=== PATIENT | male | born 1960 | race Caucasian/White ===

== ENCOUNTER 2018-09-11 07:44 | Day surgery (SDC) | payer OTHER, SELFPAY ==
[2018-09-11] MEDS: PROPARACAINE 0.5% OPHTH SOL 2 DROPS EYE-OP (08:16)
[2018-09-11 08:17] VITALS: BMI 23.3
[2018-09-11] MEDS: CATARACT EYE COMPOUND (10 DROPS/SYRINGE) 3 DROPS EYE-OP (08:22)
[2018-09-11 08:23] VITALS: BP 161/85; PULSE 88; RESP 16; TEMP 36.5; O2SAT 98
--- NOTE | 2018-09-11 09:12 | PM.PREOP ---
Pre-operative Note Interval Note History & Physical reviewed/Exam performed by Physician: Yes Changes to H&P: No
[2018-09-11] MEDS: BALANCED SALT IRRIG SOLN NO.2 15 ML 5 ML IRR (09:49)
[2018-09-11] MEDS: PHENYLEPHRINE/LIDOCAINE VIAL (OR) 0.2 ML EYE-OP (09:49)
[2018-09-11] MEDS: MOXIFLOXACIN OPHTH DROPS 3 ML BOTTLE 2 DROPS INJ (09:50)
[2018-09-11] MEDS: BALANCED SALT IRRIG SOLN NO.2 500 ML, EPINEPHrine 1 MG IRR (09:51)
[2018-09-11] MEDS: TETRACAINE 0.5% OPHTH DROPS 4 ML 2 DROPS EYE-OP (09:51)
[2018-09-11] MEDS: LIDOCAINE 2% INJ SDV 2 ML INJ (09:52)
[2018-09-11] MEDS: CHONDROIDTIN/SOD HYALURONATE 1.05 ML SYRINGE INTRAOCULA (09:52)
--- NOTE | 2018-09-11 10:05 | PM.OP.1 ---
Procedure & Clinicians Procedure: cataract extraction with intraocular lens implant, left Same procedure as scheduled: Yes Indications: Combined forms age related cataract, left Surgeon: Kenn Landers Click Yes if Unassisted: Yes Anesthesia Type: MAC +/- Operative Notes Procedure in detail: The patient was brought to the operating suite. The correct patient, surgical site and lens were confirmed. 0.5 % tetracaine drops were placed in the left eye. The patient was prepped and draped in the typical sterile manner. A lid speculum was placed in the eye. 2% lidocaine was placed on the eye. A paracentesis port was created with a side-port blade. 0.1 mL of 1% preservative free lidocaine with phenylephrine was injected into the anterior chamber. Viscoelastic was injected into the anterior chamber. A 2.6mm keratome was used to create a clear corneal temporal incision. Cystotome and Utrata forceps were used to create a continuous curvilinear capsulorrhexis. Balanced salt solution was used to hydrodissect the nucleus. Phacoemulsification was used to remove the lens. The capsular bag was inflated with viscoelastic. A Brooks ZBOO +19.0D lens was inserted into the capsule. Viscoelastic was removed and the wound hydrated. The wound was found to be leak free and the eye was assessed to be at normal physiologic pressure. 0.1mL Vigamox was injected into the anterior chamber. The lid speculum was removed and the patient left the operating room in excellent condition. Complications: none Condition: stable Disposition: same day surgery
[2018-09-11 10:11] VITALS: BP 146/77; PULSE 69; RESP 16; TEMP 36.4; O2SAT 99
== END 2018-09-11 10:24 | disposition home or self-care (01) ==
PROVIDERS: Visit Provider Ophthalmology
PROC: (CPT 66984; principal; 2018-09-11 09:30)
DX: H25.812 Combined forms of age-related cataract, left eye (principal); I10 Essential (primary) hypertension
CPT/HCPCS: 66984; J0171; J2250; J3010

== ENCOUNTER 2018-12-11 07:25 | Day surgery (SDC) | payer OTHER, SELFPAY ==
[2018-12-11] MEDS: PROPARACAINE 0.5% OPHTH SOL 2 DROPS EYE-OP (07:35)
[2018-12-11 07:41] VITALS: BP 142/82; PULSE 86; RESP 16; TEMP 37; O2SAT 97; BMI 23.5
[2018-12-11] MEDS: CATARACT EYE COMPOUND (10 DROPS/SYRINGE) 3 DROPS EYE-OP (07:51)
--- NOTE | 2018-12-11 08:28 | PM.PREOP ---
Pre-operative Note Interval Note History & Physical reviewed/Exam performed by Physician: Yes Changes to H&P: No
[2018-12-11] MEDS: TETRACAINE 0.5% OPHTH DROPS 4 ML 2 DROPS EYE-OP (08:50)
[2018-12-11] MEDS: LIDOCAINE 2% INJ SDV 2 ML INJ (08:51)
[2018-12-11] MEDS: PHENYLEPHRINE/LIDOCAINE VIAL (OR) 0.2 ML EYE-OP (08:51)
[2018-12-11] MEDS: CHONDROIDTIN/SOD HYALURONATE 1.05 ML SYRINGE INTRAOCULA (08:52)
[2018-12-11] MEDS: BALANCED SALT IRRIG SOLN NO.2 500 ML, EPINEPHrine 1 MG IRR (08:52)
[2018-12-11] MEDS: BALANCED SALT IRRIG SOLN NO.2 15 ML 5 ML IRR (08:53)
[2018-12-11] MEDS: MOXIFLOXACIN INJ 5 MG/ML VIAL EYE-OP (08:54)
--- NOTE | 2018-12-11 09:17 | PM.OP.1 ---
Procedure & Clinicians Procedure: Cataract extraction with intraocular lens implant, right Same procedure as scheduled: Yes Indications: Visually significant age related nuclear sclerosis, right Click Yes if Unassisted: Yes Anesthesia Type: MAC +/- Operative Notes Procedure in detail: The patient was brought to the operating suite. The correct patient, surgical site and lens were confirmed. 0.5 % tetracaine drops were placed in the right eye. The patient was prepped and draped in the typical sterile manner. A lid speculum was placed in the eye. 2% lidocaine was placed on the eye. A paracentesis port was created with a side-port blade. 0.1 mL of 1% preservative free lidocaine with phenylephrine was injected into the anterior chamber. Viscoelastic was injected into the anterior chamber. A 2.6mm keratome was used to create a clear corneal temporal incision. Cystotome and Utrata forceps were used to create a continuous curvilinear capsulorrhexis. Balanced salt solution was used to hydrodissect the nucleus. Phacoemulsification was used to remove the lens. The capsular bag was inflated with viscoelastic. A Brooks ZCBOO +19.5D lens was inserted into the capsule. Viscoelastic was removed and the wound hydrated and sealed with Resure glue. The wound was found to be leak free and the eye was assessed to be at normal physiologic pressure. 0.1mL Vigamox was injected into the anterior chamber. The lid speculum was removed and the patient left the operating room in excellent condition. Complications: none Post-operative Condition: stable Disposition: same day surgery
[2018-12-11 09:23] VITALS: BP 136/78; PULSE 75; RESP 15; TEMP 36.9; O2SAT 99
== END 2018-12-11 09:32 | disposition home or self-care (01) ==
LOC: OR 07:27
PROVIDERS: Visit Provider Ophthalmology
PROC: (CPT 66984; principal; 2018-12-11 08:30)
DX: H25.11 Age-related nuclear cataract, right eye (principal); I10 Essential (primary) hypertension
CPT/HCPCS: 66984; J0171; J2250; J3010

== ENCOUNTER → 2020-05-20 08:54 | Outpatient (CLI) | payer OTHER, SELFPAY ==
[2020-05-20] MEDS: COVID-19 VACC #1, MRNA(MOD) 100 MCG/0.5 ML VIAL IM (09:06)
== END ==
PROVIDERS: Visit Provider Internal Medicine
DX: Z23 Encounter for immunization (principal)
CPT/HCPCS: 0011A; 91301

== ENCOUNTER → 2020-06-17 09:53 | Outpatient (CLI) | payer OTHER, SELFPAY ==
[2020-06-17] MEDS: COVID-19 VACC #2, MRNA(MOD) 100 MCG/0.5 ML VIAL IM (10:00)
== END ==
PROVIDERS: Visit Provider Internal Medicine
DX: Z23 Encounter for immunization (principal)
CPT/HCPCS: 0012A; 91301

== ENCOUNTER → 2021-05-05 12:34 | Outpatient (CLI) | payer OTHER, SELFPAY ==
--- NOTE | 2021-05-05 12:36 | DI.RAD.S_ITS ---
PROCEDURE: XR HAND RT MIN 3V INDICATIONS: hand issue TECHNIQUE: 3 views of the hand(s) acquired. COMPARISON: None. FINDINGS: Limited evaluation of the digits secondary to flexion. Bones: No fractures or dislocations. Carpal bones are normally aligned. No suspicious bony lesions. Joint space narrowing and periarticular osteophyte formation at the scaphoid trapezial, 1st carpometacarpal joints, as well as the interphalangeal joints of the digits. Soft tissues: No suspicious soft tissue calcifications. IMPRESSION: Osteoarthritis. No acute fracture. No osseous lesion. If symptoms and/or clinical suspicion for pathology persist, further assessment with repeat, or advanced imaging (e.g., CT, MRI, or bone scan) may be helpful for further assessment. Dictated by: Alvaro Benitez M.D. on 05/05/2021 at 16:31 Approved by: Alvaro Benitez M.D. on 05/05/2021 at 16:32
== END ==
PROVIDERS: Referring Provider Nurse Practitioner Family; Visit Provider Nurse Practitioner Family
DX: M19.041 Primary osteoarthritis, right hand (principal)
CPT/HCPCS: 73130

== ENCOUNTER → 2022-04-20 12:26 | Outpatient (CLI) | payer OTHER, SELFPAY ==
[2022-04-20 13:33] LABS: Add Manual Diff / Slide Review NO; Basophils Absolute Auto 0 /uL (0-100); Basophils Percent Auto 0.3 % (0-2); Eosinophils Absolute Auto 200 /uL (0-450); Eosinophils Percent Auto 2.8 % (2-4); Hematocrit 44.5 % (41-53); Hemoglobin 15.4 g/dL (13.5-17.5); Lymphocytes Absolute Auto 1400 /uL (1100-4500); Lymphocytes Percent Auto 19.7 % (25-40); Mean Corpuscular HGB Conc 34.6 % (30-36); Mean Corpuscular Volume 92.4 fL (80-100); Monocytes Absolute Auto 1100 /uL (0-900); Monocytes Percent Auto 15.9 % (3-14); Neutrophils Absolute Auto 4200 /uL (1500-7000); Neutrophils Percent Auto 61.3 % (50-75); Platelet Count 303 X10^3/uL (150-400); Red Blood Cell Count 4.82 X10^6/uL (4.5-5.9); Red Cell Distribution Width 12.8 % (11.6-14.8); White Blood Cell Count 6.9 X10^3/uL (4.5-11.0)
[2022-04-20 14:08] LABS: Alanine Aminotransferase 19 IU/L (<50); Albumin 4.7 g/dL (3.5-5.0); Albumin Globulin Ratio 1.5 (1.0-2.8); Alkaline Phosphatase 75 U/L (38-126); Aspartate Aminotransferase 26 IU/L (17-59); BUN Creatinine Ratio 14.3 (6-22); Bilirubin Total 0.8 mg/dL (0.2-1.3); Blood Urea Nitrogen 8 mg/dL (9-20); Carbon Dioxide 32 mmol/L (22-32); Chloride 90 mmol/L (98-107); Cholesterol 168 mg/dL (140-199); Estimated Glomerular Filt Rate > 60 mL/min (>60); Globulin 3.1 g/dL (1.7-4.1); Glucose 102 mg/dL (80-110); HDL Cholesterol 94 mg/dL (40-60); HEMOLYSIS < 15 (0-50); LDL Cholesterol Calculated 62 mg/dL (<100); Potassium 4.5 mmol/L (3.4-5.1); Sodium 129 mmol/L (137-145); Total Protein 7.8 g/dL (6.3-8.2); Triglycerides 59 mg/dL (35-150); Uric Acid 5.2 mg/dL (3.5-8.5)
[2022-04-20 14:33] LABS: Prostate Specific Antigen Scrn 1.87 ng/mL (0.1-4.0)
== END ==
PROVIDERS: PCP Family Medicine; Referring Provider Family Medicine; Visit Provider Family Medicine
DX: I10 Essential (primary) hypertension (principal); N52.9 Male erectile dysfunction, unspecified; Z12.5 Encounter for screening for malignant neoplasm of prostate; Z13.220 Encounter for screening for lipoid disorders; Z87.39 Personal history of other diseases of the musculoskeletal system and connective tissue
CPT/HCPCS: 36415; 80053; 80061; 84550; 85025; G0103

== ENCOUNTER → 2023-11-11 09:04 | Outpatient (CLI) | payer OTHER, MEDICARE, SELFPAY ==
[2023-11-11 09:56] LABS: Add Manual Diff / Slide Review NO; Basophils Absolute Auto 0 /uL (0-100); Basophils Percent Auto 0.4 % (0-2); Eosinophils Absolute Auto 200 /uL (0-450); Hematocrit 40.7 % (41-53); Lymphocytes Absolute Auto 1700 /uL (1100-4500); Lymphocytes Percent Auto 21.9 % (25-40); Mean Corpuscular HGB Conc 34.4 % (30-36); Mean Corpuscular Volume 95.7 fL (80-100); Monocytes Absolute Auto 1200 /uL (0-900); Monocytes Percent Auto 15.1 % (3-14); Neutrophils Absolute Auto 4700 /uL (1500-7000); Neutrophils Percent Auto 60.6 % (50-75); Platelet Count 288 X10^3/uL (150-400); Red Blood Cell Count 4.25 X10^6/uL (4.5-5.9); White Blood Cell Count 7.7 X10^3/uL (4.5-11.0)
[2023-11-11 10:28] LABS: Alanine Aminotransferase 14 IU/L (<50); Albumin 4.3 g/dL (3.5-5.0); Albumin Globulin Ratio 1.8 (1.0-2.8); Alkaline Phosphatase 66 U/L (38-126); Aspartate Aminotransferase 24 IU/L (17-59); BUN Creatinine Ratio 15.5 (6-22); Bilirubin Total 0.9 mg/dL (0.2-1.3); Blood Urea Nitrogen 9 mg/dL (9-20); Calcium 9.6 mg/dL (8.4-10.2); Carbon Dioxide 29 mmol/L (22-32); Chloride 91 mmol/L (98-107); Cholesterol 145 mg/dL (140-199); Estimated Glomerular Filt Rate > 60 mL/min (>60); Globulin 2.4 g/dL (1.7-4.1); Glucose 93 mg/dL (80-110); HDL Cholesterol 96 mg/dL (40-60); HEMOLYSIS < 15 (0-50); LDL Cholesterol Calculated 41 mg/dL (<100); Potassium 4.7 mmol/L (3.4-5.1); Sodium 127 mmol/L (137-145); Total Protein 6.7 g/dL (6.3-8.2); Triglycerides 38 mg/dL (35-150)
[2023-11-11 10:58] LABS: Prostate Specific Antigen Scrn 1.35 ng/mL (0.1-4.0)
== END ==
PROVIDERS: PCP Family Medicine; Referring Provider Family Medicine; Visit Provider Family Medicine
DX: I10 Essential (primary) hypertension (principal); Z12.5 Encounter for screening for malignant neoplasm of prostate
CPT/HCPCS: 36415; 80053; 80061; 85025; G0103

== ENCOUNTER → 2023-12-12 07:32 | Outpatient (CLI) | payer OTHER, MEDICARE, SELFPAY ==
--- NOTE | 2023-12-12 07:34 | DI.US.S_ITS ---
PROCEDURE: US ARTERIAL DUPLEX LE BI INDICATIONS: Claudication TECHNIQUE: Color and pulse Doppler interrogation was performed of both lower extremity arterial systems, with image documentation. COMPARISON: None. FINDINGS: Right lower extremity: Common femoral artery: 94 cm/sec, with triphasic flow. Deep femoral artery: 121 cm/sec, with triphasic flow. Proximal superficial femoral artery: 286 cm/sec, with biphasic flow. Mid superficial femoral artery: 174 cm/sec, with triphasic flow. Distal superficial femoral artery: 116 cm/sec, with triphasic flow. Popliteal artery: 94 cm/sec, with triphasic flow. Posterior tibial artery: 60 cm/sec, with triphasic flow. Anterior tibial artery/dorsalis pedis: 65 cm/sec, with monophasic flow. Freeman-scale imaging description: Dense atherosclerotic plaque Left lower extremity: Common femoral artery: 88 cm/sec, with triphasic flow. Deep femoral artery: 117 cm/sec, with biphasic flow. Proximal superficial femoral artery: 74 cm/sec, with biphasic flow. Mid superficial femoral artery: 566 cm/sec, with biphasic flow. Distal superficial femoral artery: 25 cm/sec, with monophasic flow. Popliteal artery: 173 cm/sec, with monophasic flow. Posterior tibial artery: 64 cm/sec, with monophasic flow. Anterior tibial artery/dorsalis pedis: 12 cm/sec, with monophasic flow. Freeman-scale imaging description: Dense atherosclerotic plaque IMPRESSION: Dense atherosclerotic plaque bilateral lower extremity results in significant, greater than 50% stenosis involving the right proximal SFA, mid left SFA and left popliteal arteries in a background of generalized peripheral vascular disease. Approved by: Galen Null M.D. on 12/12/2023 at 11:36
== END ==
PROVIDERS: PCP Family Medicine; Referring Provider Family Medicine; Visit Provider Family Medicine
DX: I70.202 Unspecified atherosclerosis of native arteries of extremities, left leg (principal); I70.201 Unspecified atherosclerosis of native arteries of extremities, right leg; M79.605 Pain in left leg
CPT/HCPCS: 93925

== ENCOUNTER → 2024-01-02 09:36 | Outpatient (CLI) | payer OTHER, MEDICARE, SELFPAY ==
--- NOTE | 2024-01-02 09:39 | DI.NM.S_ITS ---
PROCEDURE: NM NICHOLAS PERF SPECT R&S PHARM Rest and pharmacological stress myocardial perfusion SPECT with gated imaging and ejection fraction RADIOPHARMACEUTICAL: 11.8 mCi Tc-99m tetrafosmin IV at rest and 25.2 mCi Tc-99m tetrafosmin IV at peak effect of pharmacological stress. [id number] was performed. INDICATIONS: Vascular claudication TECHNIQUE: Radiopharmaceutical was injected at peak stress test, and also at rest. SPECT images were obtained. SPECT myocardial perfusion images were displayed in short axis, horizontal long axis, and vertical long axis views. Gated images were reviewed using [employer] software. COMPARISON: None. CARDIAC STRESS: Patient exercised for 5 minutes (4.6METs) but had to stop due to calf pain from known peripheral artery disease. Therefore, a pharmacologic stress test was performed under the supervision of an attending staff, using an infusion of lexiscan 0.4mg IV X1. Hemodynamic data: There is normal blood pressure and heart rate response to pharmacologic stress. Symptoms: The patient denied anginal chest pain. Aminophylline: none EKG: No diagnostic changes of ischemia; no ectopy. FINDINGS: Raw data: There is good myocardial uptake of radiotracer. No significant motion artifacts. Prwe-gm-dhzcj ratio is 0.29 (normal is less than 0.38 for tetrafosmin tracer). Left ventricle function: Gated images demonstrate normal left ventricular wall thickening. No segmental wall motion abnormalities. No transient ischemic dilation; TID is 1.0 (normal less than 1.3). Left ventricle resting end diastolic volume is 134 mL. Left ventricle stress ejection fraction is 73%; normal range is above 45%. Myocardial perfusion: There is a severely intense fixed apical defect that mostly resolves with prone imaging, suggesting artifact than true prior infarction. No ischemia. IMPRESSION: Low risk, probably normal pharm nuclear stress test from inducible ischemia standpoint. 1) Severely intense fixed apical defect that mostly resolves with prone imaging, suggesting artifact than true prior infarction. No ischemia. 2) Normal left ventricular size, wall motion, and systolic function (EF post stress 73%). 3) No diagnostic ST changes with exercise or recovery or with lexiscan. 4) No angina during the study. 5) Limited exercise capacity (4.6METs). Study switch from treadmill to lexiscan due to calf pain from known peripheral artery disease. 6) No prior nuclear stress test available for comparison. Dictated by: Taqueria Ames MD on 01/03/2024 at 16:28 Approved by: Taqueria Ames MD on 01/03/2024 at 16:33
== END ==
PROVIDERS: PCP Family Medicine; Referring Provider Family Medicine; Visit Provider Family Medicine
DX: I73.9 Peripheral vascular disease, unspecified (principal)
CPT/HCPCS: 78452; 93017; A9502; J2785

== ENCOUNTER 2024-05-30 12:28 | Emergency (ER) | payer OTHER, MEDICARE, SELFPAY ==
[2024-05-30 12:45] VITALS: BP 152/68; PULSE 80; RESP 18; TEMP 36.7; O2SAT 98; BMI 24.3
--- NOTE | 2024-05-30 13:50 | ED_ITS ---
HPI - Epistaxis <Nicol Medina PA-C - Last Filed: 05/30/24 19:40> General Chief complaint: Nasal Problem Stated complaint: bloody nose 4 hours takes thinners Time Seen by Provider: 05/30/24 13:10 Source: patient Mode of arrival: Ambulatory History of Present Illness HPI Narrative: Mr. Call is a very pleasant 63-year-old male with a past medical history of hypertension, peripheral vascular disease on Plavix who presents to the emergency department for nosebleed since he woke up this morning. Patient reports no direct trauma to the nose, he occasionally gets nosebleeds in the winter however this morning he woke up with a nosebleed that he could not get to stop. At 1st it was on the right side of the nose but now it is mainly in the left side. Since coming to the emergency department clamping the nose, it has stopped but he occasionally gets a slow trickle in the left nare. He otherwise feels in his normal state of health with no pain, shortness of breath or dizziness. Related Data Previous Rx's Medication Instructions Recorded zolpidem 10 mg tablet 10 mg PO BEDTIME PRN insomnia #30 02/05/24 tabs nifedipine 60 mg tablet,extended 60 mg PO DAILY #90 tabs 02/10/24 release Allergies Allergy/AdvReac Type Severity Reaction Status Date / Time shellfish derived Allergy Severe Joint Verified 05/30/24 12:25 swelling morphine AdvReac Unknown nightmares Verified 05/30/24 12:25 Review of Systems <Nicol Medina PA-C - Last Filed: 05/30/24 19:40> Review of Systems ROS Unobtainable: All systems reviewed & are unremarkable except as noted in HPI and below Patient History <Nicol Medina PA-C - Last Filed: 05/30/24 19:40> Medical History Epistaxis Peripheral vascular disease with claudication Tobacco use disorder, continuous Joint stiffness of both feet Leg pain, left Plantar wart of left foot Encounter for tobacco use cessation counseling History of joint pain Dupuytren's contracture Family History Brother Age: 68 ST elevation myocardial infarction (STEMI), unspecified artery Social History household members: spouse Smoking Status: Current every day smoker Smoking Status: Current every day smoker tobacco type: cigarettes Exam <Nicol Medina PA-C - Last Filed: 05/30/24 19:40> Narrative Exam Narrative: GENERAL: 63 year old patient appears stated age. Well-developed patient, in no acute distress. HEAD: Atraumatic. Normocephalic. EYES: Extraocular motions intact. No scleral icterus. No injection or drainage. ENT: right nare with dried blood, no active bleeding. Left nare with what appears to be a small area of bleeding on the medial superior aspect of the mucosa. No significant bleeding present. Throat without erythema, tonsillar hypertrophy or exudate. Airway patent. NECK: Trachea midline. Cervical ROM intact. CARDIOVASCULAR: Regular rate RESPIRATORY: ?Nonlabored respirations. ?Speaking in clear, full sentences. NEURO: AOx3. ?Clear speech. ?Moves all 4 extremities appropriately. SKIN: No rash or erythema of visible areas Initial Vital Signs Initial Vital Signs: Vital Signs Temperature 98.1 F 05/30/24 12:45 Pulse Rate 80 05/30/24 12:45 Respiratory Rate 18 05/30/24 12:45 Blood Pressure 152/68 H 05/30/24 12:45 Pulse Oximetry 98 05/30/24 12:45 Oxygen Delivery Method Room Air 05/30/24 12:45 <Harriett Pak DO - Last Filed: 06/02/24 01:30> Initial Vital Signs Initial Vital Signs: Vital Signs Temperature 98.1 F 05/30/24 12:45 Pulse Rate 80 05/30/24 12:45 Respiratory Rate 18 05/30/24 12:45 Blood Pressure 152/68 H 05/30/24 12:45 Pulse Oximetry 98 05/30/24 12:45 Oxygen Delivery Method Room Air 05/30/24 12:45 Course <Nicol Medina PA-C - Last Filed: 05/30/24 19:40> Orders Ordered: Discontinued Medications Oxymetazoline HCl (Oxymetazoline Nasal [place] 30 Ml) 2 sprays NASAL NOW ONE Stop: 05/30/24 13:51 Last Admin: 05/30/24 13:57 Dose: 2 sprays Documented By: KETAN Vital Signs Vital signs: Vital Signs - 8 hr 05/30/24 12:45 05/30/24 14:56 05/30/24 16:25 Temperature 98.1 F 98 F Pulse Rate 80 72 77 Respiratory Rate 18 16 18 Blood Pressure 152/68 H 184/81 H 156/67 H Pulse Oximetry 98 97 97 Oxygen Delivery Method Room Air Room Air Room Air <Harriett Pak DO - Last Filed: 06/02/24 01:30> Orders Ordered: Discontinued Medications Oxymetazoline HCl (Oxymetazoline Nasal [place] 30 Ml) 2 sprays NASAL NOW ONE Stop: 05/30/24 13:51 Last Admin: 05/30/24 13:57 Dose: 2 sprays Documented By: KETAN Vital Signs Vital signs: Vital Signs - 8 hr 05/30/24 12:45 05/30/24 14:56 05/30/24 16:25 Temperature 98.1 F 98 F Pulse Rate 80 72 77 Respiratory Rate 18 16 18 Blood Pressure 152/68 H 184/81 H 156/67 H Pulse Oximetry 98 97 97 Oxygen Delivery Method Room Air Room Air Room Air MDM - Epistaxis <Nicol Medina PA-C - Last Filed: 05/30/24 19:40> Medical Records Attestation: I reviewed the patient's medical records. Medical records narrative: Reviewed prior family practice visit notes, most recent 01/20/2024 [facility] [place] Narrative Medical decision making narrative: 63-year-old male with a past medical history of hypertension, peripheral vascular disease on Plavix who presents to the emergency department for nosebleed since he woke up this morning. Differential diagnosis includes but isn't limited to anterior epistaxis, posterior epistaxis, nasal trauma, anemia, etc. On exam the patient is in no acute distress, nontoxic appearing, vital signs within normal limits, no current nasal bleeding. Clamp was applied in triage and bleeding has stopped since then. After evaluation of the left nares with speculum, I do see a small spot in the medial anterior side of the mucosa that appears to have slight continued bleeding. Afrin was instilled into the nasal cavities bilaterally and a clamp was applied for 15 minutes. After removal of the clamp, there was no return of bleeding during a 30 minute observation in the emergency department. Because of the minimal bleeding, normal vital signs, lack symptoms, I do not believe blood work is required at this time. Had an extensive discussion with the patient about signs and symptoms to return to the emergency department for. He was provided with nasal clamp and Afrin and advised to use the ED technique at home if he has recurrence of bleeding but that he should come back to the ED if bleeding does not stop after 15 minutes where he develops any symptoms such as lightheadedness dizziness or shortness of breath. Patient verbalized understanding all information is agreeable to this plan. At the time of discharge, patient's left nare started bleeding again. Patient was moved over to the main ED and evaluated by Dr. Hoover with myself, she placed a left sided Merocel packing soaked in Afrin. Patient tolerated procedure well. After an additional prolonged observation. In the emergency department, patient had no recurrence of bleeding. Recommended that he remove the packing at home tomorrow night. Discussed strict ED return precautions and follow up with PCP. Patient verbalized understanding of all information agree with the plan, he is stable for discharge home with no bleeding. Discharge Plan Departure Patient Disposition: Home Clinical Impression: Epistaxis Instructions: DI for Nosebleed Activity Restrictions/Additional Instructions: Dear Mr. Call, Thank you for coming to the emergency department, and I am sorry that today you down with a nosebleed. After applying Afrin and clamping the nose I am very happy that we are able to have the nosebleed stopped. Please avoid rubbing or blowing your nose for at least the next 4 days, do not take any [id number] NSAIDs such as ibuprofen or aspirin for the next 3-4 days. If the bleeding resumes, spray the nose with Afrin and then apply the provided clamp for at least 15 minutes. If you have continued bleeding, return to the emergency department as you may need further management. Please follow up with your primary care doctor within the next 2-3 days for ER follow-up. (If you do not have a PCP you can call [phone]. ?to schedule an appointment with an [facility] Primary Care Provider) IF YOU DEVELOP ANY NEW OR WORSENING SYMPTOMS, RETURN TO THE ER! Please read the attached instructions, they highlight more specific treatments and interventions for you at home. Thank you for letting me participate in your care, Nicol Medina PA-C Prescriptions: No Action zolpidem 10 mg tablet 10 mg PO BEDTIME PRN (Reason: insomnia) Qty: 30 3RF nifedipine 60 mg tablet extended release 60 mg PO DAILY Qty: 90 1RF Referrals: Santiago Vu DO [Primary Care Provider] - Stand Alone Forms: Patient Portal/API/Survey ED Sign-out <Harriett Pak DO - Last Filed: 06/02/24 01:30> Cosign ED Attending Cosignature Attestation: I was called to help patient at bedside. He did have a slow trickle he has had ongoing epistaxis throughout the day. Afrin and your merocel foam placed. Can remove later tonight or tomorrow. No significant bleed it did not soak up. No need for rhino rocket. I was available for consultation.
[2024-05-30] MEDS: OXYMETAZOLINE NASAL SPRAY 30 ML 2 SPRAYS NASAL (13:57)
--- NOTE | 2024-05-30 14:09 | PC.NURSE ---
Afrin instilled and nasal clamp applied. waiting 15 min before reassessment. advised to not blow nose.
[2024-05-30 14:56] VITALS: BP 184/81; PULSE 72; RESP 16; O2SAT 97
[2024-05-30 16:25] VITALS: BP 156/67; PULSE 77; RESP 18; TEMP 36.6; O2SAT 97
== END 2024-05-30 16:26 | disposition home or self-care (01) ==
PROVIDERS: Emergency Provider Physician Assistant; PCP Family Medicine
DX: R04.0 Epistaxis (principal); I10 Essential (primary) hypertension; Z79.01 Long term (current) use of anticoagulants
CPT/HCPCS: 99282

== ENCOUNTER → 2024-11-02 08:06 | Outpatient (CLI) | payer OTHER, MEDICARE, SELFPAY ==
[2024-11-02 08:39] LABS: Add Manual Diff / Slide Review NO; Hematocrit 39.4 % (41-53); Hemoglobin 13.5 g/dL (13.5-17.5); Lymphocytes Absolute Auto 1900 /uL (1100-4500); Mean Corpuscular HGB Conc 34.3 % (30-36); Mean Corpuscular Hemoglobin 32.3 PG (26-34); Mean Corpuscular Volume 94.2 fL (80-100); Platelet Count 281 X10^3/uL (150-400)
[2024-11-02 08:58] LABS: Alanine Aminotransferase 22 IU/L (<50); Albumin 4.7 g/dL (3.5-5.0); Albumin Globulin Ratio 1.9 (1.0-2.8); Alkaline Phosphatase 63 U/L (38-126); Blood Urea Nitrogen 8 mg/dL (9-20); Calcium 9.4 mg/dL (8.4-10.2); Carbon Dioxide 28 mmol/L (22-32); Chloride 95 mmol/L (98-107); Cholesterol 139 mg/dL (140-199); Estimated Glomerular Filt Rate > 60 mL/min (>60); Globulin 2.5 g/dL (1.7-4.1); Glucose 82 mg/dL (70-99); HEMOLYSIS < 15 (0-50); Potassium 4.1 mmol/L (3.4-5.1); Sodium 132 mmol/L (137-145); Total Protein 7.2 g/dL (6.3-8.2); Triglycerides 56 mg/dL (35-150)
[2024-11-02 09:12] LABS: HDL Cholesterol 117 mg/dL (40-60)
== END ==
PROVIDERS: PCP Family Medicine; Referring Provider Family Medicine; Visit Provider Family Medicine
DX: I73.9 Peripheral vascular disease, unspecified (principal); I10 Essential (primary) hypertension; Z12.5 Encounter for screening for malignant neoplasm of prostate
CPT/HCPCS: 36415; 80053; 80061; 85025; G0103